=== PATIENT | female | born 1980 | race Hispanic/Latino ===

== ENCOUNTER 2020-09-24 21:07 | Emergency (ER) | payer BC ==
[~2020-09-24] VITALS: Ht 160 cm; Wt 104.3 kg
[2020-09-24] MEDS ORDERED: ACETAMINOPHEN 325 MG TAB ONE (21:21)
[2020-09-24] MEDS ORDERED: KETOROLAC TROMETHAMINE 30 MG/ML VIAL IV STA (21:24)
[2020-09-24] MEDS ORDERED: KETOROLAC TROMETHAMINE 30 MG/ML VIAL ONE (21:24)
[2020-09-24] MEDS ORDERED: ONDANSETRON HCL 4 MG ORAL DISINTEGRATING TAB ONE (21:27)
[2020-09-24] MEDS ORDERED: ACETAMINOPHEN 325 MG TAB PO ONE (21:30)
[2020-09-24] MEDS ORDERED: ONDANSETRON HCL 4 MG ORAL DISINTEGRATING TAB PO ONE (21:30)
[2020-09-24] MEDS ORDERED: ONDANSETRON ODT4 MG PO (21:59)
== END 2020-09-24 22:55 | disposition home or self-care (01) ==
LOC: ER 21:39
DX: R50.9 Fever, unspecified (principal); U07.1 COVID-19; R11.2 Nausea with vomiting, unspecified
CPT/HCPCS: 99283; J1885; Q0162